=== PATIENT | male | born 1950 | race Caucasian/White ===

== ENCOUNTER → 2021-03-27 07:54 | Outpatient (CLI) | payer MEDICARE, OTHER, SELFPAY ==
[2021-03-27 08:56] LABS: Alanine Aminotransferase 18 IU/L (<50); Albumin 4.1 g/dL (3.5-5.0); Albumin Globulin Ratio 1.4 (1.0-2.8); Alkaline Phosphatase 58 U/L (38-126); Aspartate Aminotransferase 29 IU/L (17-59); BUN Creatinine Ratio 14.1 (6-22); Bilirubin Total 0.7 mg/dL (0.2-1.3); Blood Urea Nitrogen 13 mg/dL (9-20); Calcium 8.9 mg/dL (8.4-10.2); Carbon Dioxide 31 mmol/L (22-32); Chloride 103 mmol/L (98-107); Cholesterol 156 mg/dL (140-199); Estimated Glomerular Filt Rate > 60.0 mL/min (>60); Glucose 101 mg/dL (80-110); HDL Cholesterol 73 mg/dL (40-60); HEMOLYSIS < 15 (0-50); LDL Cholesterol Calculated 74 mg/dL (<100); Potassium 4.2 mmol/L (3.4-5.1); Sodium 138 mmol/L (137-145); Total Protein 7.1 g/dL (6.3-8.2); Triglycerides 47 mg/dL (35-150)
== END ==
PROVIDERS: PCP Family Medicine; Referring Provider Family Medicine; Visit Provider Family Medicine
DX: N40.0 Benign prostatic hyperplasia without lower urinary tract symptoms (principal); Z13.220 Encounter for screening for lipoid disorders; Z13.1 Encounter for screening for diabetes mellitus
CPT/HCPCS: 36415; 80053; 80061

== ENCOUNTER → 2021-04-09 08:52 | Outpatient (CLI) | payer MEDICARE, OTHER, SELFPAY ==
[2021-04-09 12:10] LABS: COVID19 -Nasal RAPID Negative (Negative)
== END ==
PROVIDERS: PCP Family Medicine; Visit Provider Specialist
DX: Z20.822 Contact with and (suspected) exposure to COVID-19 (principal)
CPT/HCPCS: 87635; C9803

== ENCOUNTER → 2021-04-10 08:05 | Day surgery (SDC) | payer MEDICARE, OTHER, SELFPAY ==
[2021-04-10 08:31] VITALS: BP 144/79; PULSE 68; RESP 16; TEMP 36.9; O2SAT 98; BMI 20.8
[2021-04-10] MEDS: LACTATED RINGERS 1,000 ML 200 ML IV (08:35)
--- NOTE | 2021-04-10 09:20 | P.HP_ITS ---
History of Present Illness History of Present Illness [place] [facility] [place]: Patient is a gentleman who has had polyps removed in the past. It has been 5 years since his last colonoscopy. For the last 2 colonoscopies he has been told that he could not be visualized well at the top of the colon because of prep. Therefore E did an extra day of clear liquids. However he waited until I saw him to tell me that he still having brown stool in so I have ordered a fleets enema. Patient also notes that he has a hemorrhoid pop out each time he has a bowel movement. If something can be done while on doing the colonoscopy he would like to have that done. Patient History Medical History Actinic keratosis Ankle fracture (~1999) BPH (benign prostatic hyperplasia) Bunion of great toe of left foot Chicken pox (~1962) Eczema Herpes Measles Mumps Onychomycosis Plantar warts Prostatitis (~2010) Skin cancer, basal cell (~1984) Surgical History Anesthesia History of appendectomy (~1957) History of vasectomy (~1985) Family & Social History Family History Father Stroke Glaucoma Mother History of heart disease Hypertension Congestive heart failure Brother Knee problem Sister Knee problem Grandfather Throat cancer Grandmother History of heart disease Grandfather No problems noted. Grandmother Stroke Social History: household members spouse lives independently Yes Tobacco & Substance use: Smoking Status Never smoker alcohol intake frequency a few times a month Substance Use Type does not use Meds Home Medications and Allergies Home Medications Medication Instructions Recorded Confirmed Type sodium,potassium,mag sulfates 17.5 See Rx Instructions PO .COMPLEX 03/27/21 Rx gram-3.13 gram-1.6 gram oral soln #354 ml (Suprep Bowel Prep Kit) sodium,potassium,mag sulfates 17.5 04/10/21 History gram-3.13 gram-1.6 gram oral soln (Suprep Bowel Prep Kit) Allergies Allergy/AdvReac Type Severity Reaction Status Date / Time Sulfa (Sulfonamide Allergy Mild Rash Verified 04/10/21 08:42 Antibiotics) Review of Systems Review of Systems Narrative: Negative twelve point review of systems Exam Vital Signs (past 8 hours): - 04/10/21 08:31 Temperature 98.4 F Pulse Rate 68 Respiratory Rate 16 Blood Pressure 144/79 H Pulse Oximetry 98 Oxygen Delivery Method Room Air Narrative Exam Narrative: Pleasant cooperative patient no apparent distress. Lungs are clear to auscultation. No rales or rhonchi. Heart regular rate and rhythm no murmur gallop. Abdomen is soft nontender without mass. No obvious hernias. Patient is alert and oriented x3. Assessment & Plan Assessment and plan (1) Screening for colon cancer: Status: Acute Assessment & Plan narrative: I have discussed the procedure and the rationale with the patient including risks of bleeding, perforation which would necessitate a major operation, failure to find remove all lesions and the poten tial to tattoo. They appeared to understand and wished to proceed. I also talked him about hemorrhoid banding. If I think it would be helpful I will perform the procedure if not I want. Risks of bleeding and infection related to that were discussed.
--- NOTE | 2021-04-10 09:24 | PM.PREOP ---
Pre-operative Note COVID-19 COVID-19 status: Negative Result date/Date tested (Pos, Neg/Pending): 04/09/21 Interval Note History & Physical reviewed/Exam performed by Physician: Yes Changes to H&P: No ASA Class (for procedural sedation): I
[2021-04-10] MEDS: FLEETS ENEMA 1 EACH PR ×2 (09:29→10:10)
--- NOTE | 2021-04-10 10:11 | SUR.PREOP ---
Pt held enema x 25 mins. Results are cloudy yellow-brown with stool flecks. Second Fleets ordered and given.
--- NOTE | 2021-04-10 11:08 | SUR.PREOP ---
2nd Fleets results poor. Large amount brown diarrhea stool. Dr Hong made aware. Will proceed with procedure.
--- NOTE | 2021-04-10 12:02 | SUR.PREOP ---
2 fleets administered per MD orders. Output was noted to be watery and brown. It was then decided to reschedule this case with pt using a different bowel prep.
== END | disposition home or self-care (01) ==
PROVIDERS: PCP Family Medicine; Referring Provider Specialist; Visit Provider Specialist
DX: Z12.11 Encounter for screening for malignant neoplasm of colon (principal); Z53.09 Procedure and treatment not carried out because of other contraindication; Z86.010 Personal history of colon polyps
CPT/HCPCS: G0105

== ENCOUNTER → 2021-06-11 08:37 | Outpatient (CLI) | payer MEDICARE, OTHER, SELFPAY ==
[2021-06-11 11:31] LABS: COVID19 -Nasal RAPID Negative (Negative)
== END ==
PROVIDERS: PCP Family Medicine; Visit Provider Specialist
DX: Z20.822 Contact with and (suspected) exposure to COVID-19 (principal); Z01.812 Encounter for preprocedural laboratory examination
CPT/HCPCS: 87635; C9803

== ENCOUNTER → 2021-06-12 09:01 | Day surgery (SDC) | payer MEDICARE, OTHER, SELFPAY ==
[2021-06-12 09:22] VITALS: BP 128/79; PULSE 58; RESP 16; TEMP 36.1; O2SAT 100; BMI 20.3
[2021-06-12] MEDS: LACTATED RINGERS 1,000 ML 200 ML IV (09:47)
--- NOTE | 2021-06-12 10:27 | PM.HP.1 ---
History of Present Illness History of Present Illness [place] [facility] [place]: Patient is a gentleman who was here in March for an attempted colonoscopy. He was having brown stool coming out despite 2 additional fleets enemas and therefore the procedure was not performed. He is rescheduled for today. He had been having issues the thought with hemorrhoids and 1 of them addressed but at the present time he says the not bother him at all and he would rather not have anything done unless it was necessary. I explained to him that we usually do not do anything to hemorrhoids if they are not symptomatic to the patient. Patient History Medical History Actinic keratosis Ankle fracture (~1999) BPH (benign prostatic hyperplasia) Bunion of great toe of left foot Chicken pox (~1962) Eczema Herpes Measles Mumps Onychomycosis Plantar warts Prostatitis (~2010) Skin cancer, basal cell (~1984) Surgical History Anesthesia History of appendectomy (~1957) History of vasectomy (~1985) Family & Social History Family History Father Stroke Glaucoma Mother History of heart disease Hypertension Congestive heart failure Brother Knee problem Sister Knee problem Grandfather Throat cancer Grandmother History of heart disease Grandfather No problems noted. Grandmother Stroke Social History: household members spouse lives independently Yes Tobacco & Substance use: Smoking Status Never smoker alcohol intake frequency a few times a month Substance Use Type does not use Meds Home Medications and Allergies Home Medications Medication Instructions Recorded Confirmed Type ketoconazole 2 % topical cream applic TOPICAL 06/12/21 History Allergies Allergy/AdvReac Type Severity Reaction Status Date / Time Sulfa (Sulfonamide Allergy Mild Rash Verified 06/12/21 09:19 Antibiotics) Review of Systems Review of Systems Narrative: Patient has no breathing difficulties cough or cold. No heart problems or chest pain. No black or bloody bowel movements. No seizures or blackouts. Exam Vital Signs (past 8 hours): - 06/12/21 09:22 Temperature 96.9 F L Pulse Rate 58 L Respiratory Rate 16 Blood Pressure 128/79 Pulse Oximetry 100 Oxygen Delivery Method Room Air Narrative Exam Narrative: Pleasant cooperative patient no apparent distress. Lungs are clear to auscultation. No rales or rhonchi. Heart regular rate and rhythm no murmur gallop. Abdomen is soft nontender without mass. No obvious hernias. Patient is alert and oriented x3. Assessment & Plan Assessment and plan (1) Colon polyps: Qualifiers: Colon polyp type: adenomatous Colon location: unspecified part of colon Qualified Code(s): D12.6 - Benign neoplasm of colon, unspecified Status: Acute Assessment & Plan narrative: Patient with history of colon polyps. Last colonoscopy was about 5 years ago. He is brought in for a repeat exam. I have discussed the procedure and the rationale with the patient including risks of bleeding, perforation which would necessitate a major operation, failure to find remove all lesions and the potential to tattoo. He appeared to understand and wished to proceed. Time Spent With Patient Critical Care time: I spent a total of [] minutes of critical care time on this patient's care today; this time is exclusive of procedural time.
--- NOTE | 2021-06-12 10:48 | PM.PREOP ---
Pre-operative Note COVID-19 COVID-19 status: Negative Result date/Date tested (Pos, Neg/Pending): 06/11/21 Interval Note History & Physical reviewed/Exam performed by Physician: Yes Changes to H&P: No ASA Class (for procedural sedation): I
[2021-06-12] MEDS: fentaNYL 250 MCG/5 ML INJ IV (11:24)
--- NOTE | 2021-06-12 11:24 | P.OP.EGD&C_ITS ---
Operative Date/Time/Diagnoses Date of procedure: 06/12/21 Time of procedure: 11:24 Pre-op diagnosis: Screening exam Post-op diagnosis: same Procedure & Clinicians Study performed: Colonoscopy Same procedure as scheduled: Yes Indications: Screening for colon cancer Surgeon: Arjun Hong Procedure Notes SCOAP/Timeout: Performed Procedure in detail: The patient was placed in the left lateral decubitus position and underwent IV sedation directed by the surgeon consisting of fentanyl and Versed. Digital exam was unremarkable. His prostate is fairly flat. Increased sphincter tone. The scope was inserted and advanced through the rectum into the sigmoid, descending, transverse, and ascending colon. To get this far the patient had to reproduce be repositioned and have compression applied. Was very difficult to ultimately reach the cecum but I did so. The cecum was reached identified by the ileocecal valve and the appendiceal opening. The scope was gradually brought out. NoPolyps were found. The scope ult imately was retroflexed in the rectum. The appearance was normal except for some mild hemorrhoidal disease. The scope was removed and the patient tolerated the procedure well. There was a tremendous amount of fluid in the colon that had to be suctioned free but ultimately the exam was adequate. Scope withdrawal time: 5 minutes Sedation minutes: 32 Findings: other findings (Very elongated colon) Specimen(s): none sent Complications: none Post-procedure Recommendations: Colonscopy in 10 years (If in good health) Follow up: as needed Disposition: PACU
[2021-06-12 11:25] VITALS: BP 95/52; PULSE 65; RESP 12; TEMP 37.2; O2SAT 100
[2021-06-12] MEDS: MIDAZOLAM 5 MG/5 ML VIAL IV (11:25)
[2021-06-12 11:30] VITALS: BP 99/57; PULSE 58; RESP 12; O2SAT 100
[2021-06-12 11:35] VITALS: BP 95/57; PULSE 55; RESP 8; O2SAT 100
[2021-06-12 11:38] VITALS: BP 97/55; PULSE 58; RESP 12; TEMP 37.1; O2SAT 100
[2021-06-12 11:59] VITALS: BP 102/56; PULSE 58; RESP 14; O2SAT 100
== END | disposition home or self-care (01) ==
PROVIDERS: PCP Family Medicine; Referring Provider Specialist; Visit Provider Specialist
PROC: 0DJD8ZZ Inspection of Lower Intestinal Tract, Via Natural or Artificial Opening Endoscopic (ICD-10-PCS; CPT 45378; principal; 2021-06-12 10:00)
DX: Z12.11 Encounter for screening for malignant neoplasm of colon (principal); Z86.010 Personal history of colon polyps
CPT/HCPCS: G0105; J2250; J3010

== ENCOUNTER → 2022-07-06 09:43 | Outpatient (CLI) | payer MEDICARE, OTHER, SELFPAY ==
[2022-07-06 12:45] LABS: Add Manual Diff / Slide Review NO; Basophils Absolute Auto 100 /uL (0-100); Basophils Percent Auto 0.6 % (0-2); Eosinophils Absolute Auto 200 /uL (0-450); Eosinophils Percent Auto 2.7 % (2-4); Hematocrit 39.3 % (41-53); Hemoglobin 13.5 g/dL (13.5-17.5); Lymphocytes Absolute Auto 900 /uL (1100-4500); Lymphocytes Percent Auto 9.6 % (25-40); Mean Corpuscular HGB Conc 34.5 % (30-36); Mean Corpuscular Hemoglobin 32.5 PG (26-34); Mean Corpuscular Volume 94.1 fL (80-100); Monocytes Absolute Auto 700 /uL (0-900); Monocytes Percent Auto 7.7 % (3-14); Neutrophils Absolute Auto 7100 /uL (1500-7000); Neutrophils Percent Auto 79.4 % (50-75); Platelet Count 200 X10^3/uL (150-400); Red Blood Cell Count 4.17 X10^6/uL (4.5-5.9); Red Cell Distribution Width 13.2 % (11.6-14.8); White Blood Cell Count 8.9 X10^3/uL (4.5-11.0)
[2022-07-06 13:00] LABS: HEMOLYSIS < 15 (0-50); Sodium 133 mmol/L (137-145)
[2022-07-06 13:01] LABS: Alanine Aminotransferase 23 IU/L (<50); Albumin 4.1 g/dL (3.5-5.0); Albumin Globulin Ratio 1.2 (1.0-2.8); Alkaline Phosphatase 67 U/L (38-126); Aspartate Aminotransferase 32 IU/L (17-59); BUN Creatinine Ratio 15.6 (6-22); Bilirubin Total 0.6 mg/dL (0.2-1.3); Blood Urea Nitrogen 15 mg/dL (9-20); Calcium 8.3 mg/dL (8.4-10.2); Carbon Dioxide 28 mmol/L (22-32); Chloride 97 mmol/L (98-107); Cholesterol 148 mg/dL (140-199); Estimated Glomerular Filt Rate > 60 mL/min (>60); Globulin 3.5 g/dL (1.7-4.1); Glucose 94 mg/dL (80-110); HDL Cholesterol 56 mg/dL (40-60); LDL Cholesterol Calculated 82 mg/dL (<100); Potassium 4.3 mmol/L (3.4-5.1); Total Protein 7.6 g/dL (6.3-8.2); Triglycerides 51 mg/dL (35-150)
[2022-07-06 13:28] LABS: Prostate Specific Antigen Scrn 2.27 ng/mL (0.1-4.0)
== END ==
PROVIDERS: PCP Family Medicine; Referring Provider Family Medicine; Visit Provider Family Medicine
DX: Z00.00 Encounter for general adult medical examination without abnormal findings (principal); D12.6 Benign neoplasm of colon, unspecified; K64.8 Other hemorrhoids; Z12.5 Encounter for screening for malignant neoplasm of prostate; N40.1 Benign prostatic hyperplasia with lower urinary tract symptoms; R35.1 Nocturia; Z13.6 Encounter for screening for cardiovascular disorders
CPT/HCPCS: 36415; 80053; 80061; 85025; G0103

== ENCOUNTER → 2023-08-12 06:56 | Outpatient (CLI) | payer MEDICARE, OTHER, SELFPAY ==
[2023-08-12 08:14] LABS: Add Manual Diff / Slide Review NO; Basophils Absolute Auto 100 /uL (0-100); Basophils Percent Auto 1.1 % (0-2); Eosinophils Absolute Auto 1200 /uL (0-450); Eosinophils Percent Auto 17.9 % (2-4); Hemoglobin 13.9 g/dL (13.5-17.5); Lymphocytes Absolute Auto 2500 /uL (1100-4500); Lymphocytes Percent Auto 36.8 % (25-40); Mean Corpuscular HGB Conc 33.8 % (30-36); Mean Corpuscular Hemoglobin 32.2 PG (26-34); Mean Corpuscular Volume 95.4 fL (80-100); Monocytes Absolute Auto 700 /uL (0-900); Monocytes Percent Auto 10.7 % (3-14); Neutrophils Absolute Auto 2200 /uL (1500-7000); Neutrophils Percent Auto 33.5 % (50-75); Platelet Count 228 X10^3/uL (150-400); Red Cell Distribution Width 14.4 % (11.6-14.8); White Blood Cell Count 6.7 X10^3/uL (4.5-11.0)
[2023-08-12 08:29] LABS: Alanine Aminotransferase 22 IU/L (<50); Albumin 3.9 g/dL (3.5-5.0); Albumin Globulin Ratio 1.1 (1.0-2.8); Alkaline Phosphatase 53 U/L (38-126); Aspartate Aminotransferase 35 IU/L (17-59); BUN Creatinine Ratio 13.7 (6-22); Bilirubin Total 0.7 mg/dL (0.2-1.3); Blood Urea Nitrogen 14 mg/dL (9-20); Carbon Dioxide 30 mmol/L (22-32); Chloride 101 mmol/L (98-107); Cholesterol 170 mg/dL (140-199); Estimated Glomerular Filt Rate > 60 mL/min (>60); Globulin 3.4 g/dL (1.7-4.1); Glucose 103 mg/dL (80-110); HDL Cholesterol 59 mg/dL (40-60); HEMOLYSIS < 15 (0-50); LDL Cholesterol Calculated 100 mg/dL (<100); Potassium 4.4 mmol/L (3.4-5.1); Sodium 137 mmol/L (137-145); Total Protein 7.3 g/dL (6.3-8.2); Triglycerides 53 mg/dL (35-150)
[2023-08-12 08:59] LABS: Prostate Specific Antigen Scrn 3.16 ng/mL (0.1-4.0)
[2023-08-15 16:42] LABS: Hep C Virus Ab w/Reflex Quant NEGATIVE s/c (NEGATIVE)
== END ==
PROVIDERS: PCP Family Medicine; Referring Provider Family Medicine; Visit Provider Family Medicine
DX: R35.1 Nocturia (principal); E87.1 Hypo-osmolality and hyponatremia; Z12.5 Encounter for screening for malignant neoplasm of prostate; N40.1 Benign prostatic hyperplasia with lower urinary tract symptoms; E83.52 Hypercalcemia; D72.9 Disorder of white blood cells, unspecified
CPT/HCPCS: 36415; 80053; 80061; 85025; 86803; G0103

== ENCOUNTER → 2023-11-18 06:54 | Outpatient (CLI) | payer MEDICARE, OTHER, SELFPAY ==
[2023-11-18 08:05] LABS: Add Manual Diff / Slide Review NO; Basophils Absolute Auto 100 /uL (0-100); Basophils Percent Auto 1.1 % (0-2); Eosinophils Absolute Auto 900 /uL (0-450); Eosinophils Percent Auto 14.3 % (2-4); Lymphocytes Absolute Auto 2400 /uL (1100-4500); Lymphocytes Percent Auto 38.3 % (25-40); Mean Corpuscular HGB Conc 34.1 % (30-36); Mean Corpuscular Hemoglobin 32.5 PG (26-34); Mean Corpuscular Volume 95.3 fL (80-100); Monocytes Absolute Auto 700 /uL (0-900); Monocytes Percent Auto 10.6 % (3-14); Neutrophils Absolute Auto 2300 /uL (1500-7000); Neutrophils Percent Auto 35.7 % (50-75); Platelet Count 211 X10^3/uL (150-400); Red Cell Distribution Width 13.3 % (11.6-14.8); White Blood Cell Count 6.4 X10^3/uL (4.5-11.0)
[2023-11-18 08:52] LABS: Prostate Specific Antigen Scrn 2.82 ng/mL (0.1-4.0)
== END ==
LOC: LAB 06:55
PROVIDERS: PCP Family Medicine; Referring Provider Family Medicine; Visit Provider Family Medicine
DX: Z12.5 Encounter for screening for malignant neoplasm of prostate (principal); D72.10 Eosinophilia, unspecified
CPT/HCPCS: 36415; 85025; G0103

== ENCOUNTER → 2025-01-31 07:49 | Outpatient (CLI) | payer MEDICARE, OTHER, SELFPAY ==
[2025-01-31 08:29] LABS: Add Manual Diff / Slide Review NO; Basophils Absolute Auto 100 /uL (0-100); Basophils Percent Auto 1.2 % (0-2); Eosinophils Absolute Auto 600 /uL (0-450); Eosinophils Percent Auto 12.7 % (2-4); Hematocrit 41.4 % (41-53); Hemoglobin 14.1 g/dL (13.5-17.5); Lymphocytes Absolute Auto 2200 /uL (1100-4500); Mean Corpuscular HGB Conc 34.1 % (30-36); Mean Corpuscular Hemoglobin 32.5 PG (26-34); Mean Corpuscular Volume 95.4 fL (80-100); Monocytes Absolute Auto 600 /uL (0-900); Monocytes Percent Auto 10.9 % (3-14); Neutrophils Absolute Auto 1600 /uL (1500-7000); Neutrophils Percent Auto 32.2 % (50-75); Platelet Count 235 X10^3/uL (150-400); Red Blood Cell Count 4.34 X10^6/uL (4.5-5.9); Red Cell Distribution Width 13.3 % (11.6-14.8); White Blood Cell Count 5.1 X10^3/uL (4.5-11.0)
[2025-01-31 08:51] LABS: Alanine Aminotransferase 19 IU/L (<50); Albumin 4.4 g/dL (3.5-5.0); Albumin Globulin Ratio 1.4 (1.0-2.8); Alkaline Phosphatase 58 U/L (38-126); Aspartate Aminotransferase 33 IU/L (17-59); BUN Creatinine Ratio 15.1 (6-22); Bilirubin Total 0.9 mg/dL (0.2-1.3); Blood Urea Nitrogen 16 mg/dL (9-20); Carbon Dioxide 28 mmol/L (22-32); Chloride 101 mmol/L (98-107); Cholesterol 180 mg/dL (140-199); Estimated Glomerular Filt Rate > 60 mL/min (>60); Globulin 3.2 g/dL (1.7-4.1); Glucose 103 mg/dL (70-99); HDL Cholesterol 73 mg/dL (40-60); HEMOLYSIS < 15 (0-50); LDL Cholesterol Calculated 95 mg/dL (<100); Potassium 4.6 mmol/L (3.4-5.1); Sodium 135 mmol/L (137-145); Total Protein 7.6 g/dL (6.3-8.2); Triglycerides 58 mg/dL (35-150)
[2025-01-31 09:22] LABS: Prostate Specific Antigen Scrn 2.67 ng/mL (0.1-4.0)
== END ==
PROVIDERS: PCP Family Medicine; Referring Provider Family Medicine; Visit Provider Family Medicine
DX: Z00.00 Encounter for general adult medical examination without abnormal findings (principal); E83.52 Hypercalcemia; D12.6 Benign neoplasm of colon, unspecified; Z12.5 Encounter for screening for malignant neoplasm of prostate; D72.10 Eosinophilia, unspecified; E87.1 Hypo-osmolality and hyponatremia
CPT/HCPCS: 36415; 80053; 80061; 85025; G0103

== ENCOUNTER → 2025-08-07 08:11 | Outpatient (CLI) | payer MEDICARE, OTHER, SELFPAY ==
[2025-08-07 09:27] LABS: Add Manual Diff / Slide Review NO; Hematocrit 42.1 % (41-53); Hemoglobin 14.4 g/dL (13.5-17.5); Lymphocytes Absolute Auto 2400 /uL (1100-4500); Mean Corpuscular HGB Conc 34.2 % (30-36); Mean Corpuscular Hemoglobin 31.6 PG (26-34); Mean Corpuscular Volume 92.5 fL (80-100); Platelet Count 384 X10^3/uL (150-400)
[2025-08-07 10:05] LABS: Alanine Aminotransferase 18 IU/L (<50); Albumin 4.2 g/dL (3.5-5.0); Albumin Globulin Ratio 1.2 (1.0-2.8); Alkaline Phosphatase 73 U/L (38-126); Blood Urea Nitrogen 14 mg/dL (9-20); Calcium 8.9 mg/dL (8.4-10.2); Carbon Dioxide 29 mmol/L (22-32); Chloride 100 mmol/L (98-107); Estimated Glomerular Filt Rate > 60 mL/min (>60); Globulin 3.5 g/dL (1.7-4.1); Glucose 94 mg/dL (70-99); HEMOLYSIS < 15 (0-50); Potassium 4.7 mmol/L (3.4-5.1); Sodium 137 mmol/L (137-145); Total Protein 7.7 g/dL (6.3-8.2)
[2025-08-07 10:37] LABS: Prostate Specific Antigen 8.26 ng/mL (0.10-4.00)
== END ==
PROVIDERS: PCP Family Medicine; Referring Provider Family Medicine; Visit Provider Family Medicine
DX: D12.6 Benign neoplasm of colon, unspecified (principal); K64.8 Other hemorrhoids; K64.4 Residual hemorrhoidal skin tags; N39.0 Urinary tract infection, site not specified
CPT/HCPCS: 36415; 80053; 84153; 85025